=== PATIENT | male | born 1935 | race Caucasian/White ===

== ENCOUNTER 2018-11-22 11:53 | Day surgery (SDC) | payer BC ==
[2018-11-22] MEDS ORDERED: LIDOCAINE 2% MDV (20MG/ML) 20ML VIAL IV ONE (11:54)
[2018-11-22] MEDS ORDERED: PROPOFOL 10 MG/ML VIAL IV ONE (11:54)
--- NOTE | 2018-11-23 11:00 | Operative Note ---
OPERATION: COLONOSCOPY to the cecum. INDICATION: Prior history of adenomatous polyp. The patient returns at this time for surveillance. His last examination was 2013. He denies current issues. ANESTHESIA: Intravenous sedation was administered by the department of anesthesiology and included Diprivan titrated to effect. PROCEDURE: Following informed consent from this alert individual including a discussion of the risks and benefits of the procedure and an opportunity for the patient to ask questions, the patient was in the left lateral decubitus position. A digital rectal examination was performed. No abnormalities were noted. Following this, the Olympus [id number] video colonoscope was inserted into the rectum without resistance. 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 The sigmoid colon had extensive diverticulosis noted. The colonoscope was advanced up through the colon to the level of the cecum without much difficulty. The cecum itself was well identified by noting the appendiceal orifice and ileocecal valve. The colon preparation overall was good. From the base of the cecum, the colonoscope was then withdrawn. There were scattered diverticula noted in the sigmoid colon but no other changes appreciated other than the radiation proctitis noted in the distal rectum. Retroflexion in the rectum also demonstrated some small internal hemorrhoids. The endoscope was straightened and removed. The patient tolerated the procedure well and was returned to the recovery area in stable condition. IMPRESSION: 1. Sigmoid diverticulosis. 2. Radiation distal proctitis. 3. Small internal hemorrhoids. RECOMMENDATIONS: Further recommendations will be forthcoming pending his progress. At this point, he will be following up with his primary care physician. If he should experience rectal bleeding, argon plasma coagulation might prove beneficial in the future. As always, thank you for allowing me to participate in the care of your patient. NICO
== END 2018-11-22 14:30 | disposition home or self-care (01) ==
LOC: HOP 11:53
PROVIDERS: ATTEND Internal Medicine Gastroenterology
DX: Z12.11 Encounter for screening for malignant neoplasm of colon (principal); Z86.010 Personal history of colon polyps; K57.30 Diverticulosis of large intestine without perforation or abscess without bleeding; K62.7 Radiation proctitis; I10 Essential (primary) hypertension; E11.9 Type 2 diabetes mellitus without complications; E78.00 Pure hypercholesterolemia, unspecified; I48.91 Unspecified atrial fibrillation; I50.9 Heart failure, unspecified; J44.9 Chronic obstructive pulmonary disease, unspecified; R60.9 Edema, unspecified
CPT/HCPCS: 00812; G0105